=== PATIENT | male | born 1940 | race Caucasian/White ===

== ENCOUNTER 2021-01-27 10:47 | Outpatient (RCR) | payer OTHER, SELFPAY | END 2021-01-27 23:59 | disposition home or self-care (01) | LOC: ANHAUDIO 10:47 | PROVIDERS: PCP Family Medicine | DX: Z46.1 Encounter for fitting and adjustment of hearing aid (principal) | CPT/HCPCS: 92593 ==

== ENCOUNTER 2022-07-13 14:21 | Outpatient (RCR) | payer MEDICARE, SELFPAY | END 2022-07-13 23:59 | disposition home or self-care (01) | LOC: ANHAUDIO 14:21 | PROVIDERS: PCP Family Medicine; Visit Provider Family Medicine | DX: Z46.1 Encounter for fitting and adjustment of hearing aid (principal) | CPT/HCPCS: 92593 ==

== ENCOUNTER 2022-09-03 15:02 | Inpatient (IN) | payer MEDICARE, SELFPAY ==
--- NOTE | ~2022-09-03 | XR_ITS ---
XR abdomen/kub 1V 09/07/2022 08:45 Indication: Constipation. Procedure: KUB Comparison: 09/06/2022 Findings: There is large amount of retained fecal material in the proximal colon. There is mildly dil ated small bowel. There is residual contrast in the bladder. Pacemaker leads are overlying the heart. There are median sternotomy wires. Severe lumbar spondylosis. Impression: 1: Moderate colonic fecal loading with dilated small bowel which may represent obstruction or ileus. Reviewed, dictated and finalized at location L. Impression: 1: Moderate colonic fecal loading with dilated small bowel which may represent obstruction or ileus.
--- NOTE | ~2022-09-03 | XR_ITS ---
XR abdomen/kub 1V 09/06/2022 11:09 Indication: Bowel obstruction Procedure: KUB Comparison: No prior studies for comparison. Findings: Dilated small bowel present throughout the abdomen. The colon is relatively decompressed. T here is retained fecal material in the rectum. No abnormal calcifications. Impression: 1: Dilated small bowel, compatible with obstruction. Reviewed, dictated and finalized at location B. Impression: 1: Dilated small bowel, compatible with obstruction.
--- NOTE | ~2022-09-03 | XR_ITS ---
EXAMINATION: XR abdomen/kub 1V INDICATION: Constipation TECHNIQUE: Supine views of the abdomen were obtained on three radiographs. COMPARISON: 09/07/2022 FINDINGS: Again seen is a moderate volume of colonic stool. There are persistent mild dilatation of m ultiple small bowel loops. No free intraperitoneal gas is identified. IMPRESSION: 1. Constipation. Multiple mildly dilated loops of small bowel, likely ileus. Reviewed, dictated and finalized at location A.
--- NOTE | ~2022-09-03 | CT_ITS ---
EXAMINATION: CT abdomen pelvis w con DATE: 09/06/2022 19:11 INDICATION: VOMITING SINCE LAST NIGHT, NEOPLASM OF SB, WORSENING BOWEL TECHNIQUE: Computed tomography (CT) of the abdomen and pelvis was performed with 100 mL Omnipaque-350 intravenous contrast. Automated exposure control and iterative reconstruction technique were employe d. The dose-length product was 1422.02 mGy-cm. COMPARISON: None. FINDINGS: Lower thorax: Sternotomy wires. Partially visualized pacing wires. Asbestos-related pleural disease. Scarring/atelectasis and architectural distortion in the lung bases. Liver: Normal. Biliary/Gallbladder: Gallbladder is normal. No bile duct dilation. Pancreas: Mild atrophy Spleen: Normal. Adrenals:2.7 cm indeterminate density left adrenal mass Kidneys: Simple left renal cyst. No suspicious mass, stone, or hydronephrosis. GI tract: NG tube, tip and side port project in the stomach. Lobulated 6.7 x 11.6 x 11.3 cm central l ow density mass intimately associated with a loop of small bowel in the left mid abdomen/lower quadra nt. Ovoid, hyperenhancing 1.7 cm small bowel wall mass in the left upper quadrant . Mild dilation of multiple loops of small bowel in the left upper abdomen, with no transition point, wall thickening, o r pneumatosis. Normal appendix. Diverticulosis without diverticulitis. Mesentery/Peritoneum: No ascites, mass, or free air. Retroperitoneum: No mass. Pelvis: Marked distention of the urinary bladder. Mild prostatomegaly with calcifications. Soft Tissues: Soft tissues and body wall unremarkable. Bones: No acute osseous finding. IMPRESSION: Mild small bowel dilation, most likely represents ileus. Early or partial obstruction not excluded. N o CT evidence of bowel perforation. 11.6 cm necrotic left lower abdominal mass, likely arising from b owel wall. 1.7 cm hyperenhancing mass in the left upper quadrant also likely arising from bowel wall. Reviewed, dictated and finalized at location K. IMPRESSION: Mild small bowel dilation, most likely represents ileus. Early or partial obstr uction not excluded. No CT evidence of bowel perforation. 11.6 cm necrotic left lower abdominal mass, likely arising from bowel wall. 1.7 cm hyperenhancing ma ss in the left upper quadrant also likely arising from bowel wall.
[2022-09-03 15:15] VITALS: BP 118/64; PULSE 76; RESP 18; TEMP 36.2; O2SAT 97; BMI 39.8
--- NOTE | 2022-09-03 15:15 | ADMGEN ---
This patient, Tex Campo, was admitted to 2nd Floor Room 209-1 as a skilled swing bed related to weakness/rehab. Patient/family oriented to hospital policies and general routines including ID bracelet, bed and alarms, visiting hours, pain management, procedures, bathroom and other care routines, personal items, smoking policy, room service/diet, and visiting hours. Information on how to activate the Rapid Response Team has been discussed. Patient/Family are encouraged to report perceived risks to care and to ask questions if they do not understand what they are told or what they should do.
[2022-09-03] MEDS: OMEGA 3 POLYUNSAT FATTY ACIDS 1 GM CAP 2 GM PO (18:25)
[2022-09-03] MEDS: SALMET XINAFT/FLUTIC PROPIN 250 MCG/50 MCG INH CAP 1 PUFF INHALATION (18:25)
[2022-09-03] MEDS: FAMOTIDINE 20 MG TABLET PO (20:07)
[2022-09-03] MEDS: traZODone HCL 50 MG TABLET PO (20:07)
[2022-09-03 23:32] VITALS: BP 120/58; PULSE 75; RESP 16; TEMP 36.4; O2SAT 98
[2022-09-04 05:17] LABS: Hematocrit 29.6 % (37.0-46.0); Hemoglobin 9.3 g/dL (12.4-15.3); Mean Corpuscular HGB Conc 31.4 g/dL (32.0-36.0); Mean Corpuscular Hemoglobin 28.3 pg (27.0-31.0); Mean Platelet Volume 8.2 fl (8.7-11.0); Platelet Count Result 191 K/mm3 (150-420); Red Blood Count 3.29 M/mm3 (4.70-6.10); Red Cell Distribution Width 15.1 % (11.6-14.4); White Blood Count 9.7 K/mm3 (4.8-10.8)
[2022-09-04 05:37] LABS: Alanine Aminotransferase 14 U/L (16-63); Albumin Level 2.6 g/dL (3.4-5.0); Alkaline Phosphatase 90 U/L (46-116); Anion Gap 9 mmol/L (8-16); Aspartate Amino Transferase 11 U/L (15-37); Bilirubin,Total 0.3 mg/dL (0.00-1.00); Blood Urea Nitrogen 12 mg/dL (7-18); Calcium 8.4 mg/dL (8.5-10.1); Carbon Dioxide 27 mmol/L (21-32); Chloride 107 mmol/L (98-108); Estimated CRCL calculation 66 ml/min; Estimated Glomerular Filt Rate > 60; Glucose 107 mg/dL (70-99); Osmolality Calculated 295 mOsm/kg (285-295); Potassium 3.9 mmol/L (3.5-5.1); Sodium 143 mmol/L (136-145); Total Protein 6.1 g/dL (6.4-8.2)
--- NOTE | 2022-09-04 05:37 | PM.IMHP ---
H&P: HPI History of Present Illness Date/Time: 09/04/22 05:37 Chief Complaint: rehab/weakness Narrative: this is a 82-year-old male with a past medical history of CAD status post CABG, AFib, chronic kidney disease stage 2, COPD, SAM, BPH,. Patient presented to outside hospital with a hemoglobin of 5.4 and received 3 units of PRBCs image showed 11 cm small intestinal mass with intraluminal hemorrhage compression of the ureter. patient was diagnosed with malignancy neoplasm w/ extensive necrosis. surgical Oncology does not recommend any further biopsy or surgery given high risk surgical candidate. Patient admitted in swing bed for rehabilitation due to decreased balance decreased mobility in severe limited function endurant and/or mobility. we also where the patient may require blood transfusions and he will receive periodical hemoglobin and hematocrit. Denies Review of Systems Review of Systems: All systems reviewed & are unremarkable except as noted in HPI and below PMFSH Social History Social History Smoking status: Never smoker Alcohol intake: never Substance use: never Lack of Transportation: No Lack of Food: Never True Current Housing: I Have Housing Concerned About Future Housing: No Difficulty Paying Gas/Electric Bills: No Difficulty Paying for Meds: No Currently Unemployed: No Education: High School Diploma/GED Difficulty w/ Childcare or Family Care: No Spiritual care concerns: No Meds Home Medications and Allergies Home Medications Medication Instructions Recorded Confirmed Type aspirin 81 mg tablet,delayed 81 mg PO DAILY 09/03/22 09/03/22 History release (Adult Low Dose Aspirin) benzonatate 100 mg capsule 100 mg PO TID PRN Cough 09/03/22 09/03/22 History esomeprazole magnesium 20 mg 20 mg PO DAILY 09/03/22 09/03/22 History capsule,delayed release famotidine 20 mg tablet 20 mg PO HS 09/03/22 09/03/22 History ferrous sulfate 325 mg (65 mg 325 mg PO DAILY 09/03/22 09/03/22 History iron) tablet (FeroSul) finasteride 5 mg tablet 5 mg PO DAILY 09/03/22 09/03/22 History fluticasone 250 mcg-salmeterol 50 1 inh inhalation Q12H 09/03/22 09/03/22 History mcg/dose blistr powdr for inhalation fluticasone propionate 50 2 spray intranasal DAILY 09/03/22 09/03/22 History mcg/actuation nasal spray,suspension icosapent ethyl 1 gram capsule 2 g PO BID 09/03/22 09/03/22 History ipratropium bromide 0.02 % 2.5 ml inhalation Q6H PRN 09/03/22 09/03/22 History solution for inhalation Shortness Of Breath polyethylene glycol 3350 17 gram 17 g PO DAILY PRN Constipation 09/03/22 09/03/22 History oral powder packet simvastatin 40 mg tablet 40 mg PO DAILY 09/03/22 09/03/22 History tamsulosin 0.4 mg capsule 0.4 mg PO DAILY 09/03/22 09/03/22 History Allergies Allergy/AdvReac Type Severity Reaction Status Date / Time albuterol Allergy Palpitation Verified 09/03/22 15:35 s levofloxacin Allergy Rash Verified 09/03/22 15:36 roflumilast Allergy Unknown Verified 09/03/22 15:36 Vital Signs Vital Signs - 24 hr 09/03/22 15:15 09/03/22 15:15 09/03/22 23:32 Temperature 36.2 C L 36.4 C Pulse Rate 76 75 Respiratory Rate 18 16 Blood Pressure 118/64 120/58 L Pulse Oximetry 97 97 98 Oxygen Delivery Room Air Room Air Room Air Exam Narrative: GENERAL: This is a well-nourished, well-developed patient, in no apparent distress. HEAD: normocephalic, atraumatic. EYES: PERRL. Sclera clear/white. Vision is grossly intact. EARS: External ears normal, auditory canals clear and without drainage, TMs normal without perforation. Hearing grossly intact. NOSE: External nose normal with no obvious nasal discharge, nares without redness, no rhinorrhea. THROAT: Mucous membranes moist, posterior pharynx clear. NECK: Neck supple, non-tender without lymphadenopathy, masses or thyromegaly. CARDIOVASCULAR: Regular rate and rhythm without murmurs, gallops, or rubs. RESPIRATORY: C
--- NOTE | 2022-09-04 05:56 | PC.NURSE ---
Weight double verified. Patient slept well with no complaints. Ambulated x1 to bathroom with walker and 1 assist with gait belt.
[2022-09-04] MEDS: SALMET XINAFT/FLUTIC PROPIN 250 MCG/50 MCG INH CAP 1 PUFF INHALATION ×2 (06:04→17:38)
[2022-09-04 08:00] VITALS: BP 126/65; PULSE 75; RESP 16; TEMP 36.2; O2SAT 96
[2022-09-04] MEDS: FLUTICASONE PROPIONATE 0.05% NA SPR 16 GM BTL (*BKC) 2 SPRAY NASAL (08:47)
[2022-09-04] MEDS: OMEGA 3 POLYUNSAT FATTY ACIDS 1 GM CAP 2 GM PO ×2 (08:48→17:37)
[2022-09-04] MEDS: TAMSULOSIN HCL 0.4 MG CAPSULE PO (08:48)
[2022-09-04] MEDS: SIMVASTATIN 10 MG TABLET 40 MG PO (08:48)
[2022-09-04] MEDS: PANTOPRAZOLE SOD SESQUIHYDRATE 20 MG TAB PO (08:49)
[2022-09-04] MEDS: ASPIRIN 81 MG ENTERIC TABLET PO (08:49)
[2022-09-04] MEDS: FERROUS SULFATE 324 MG TABLET PO (08:49)
[2022-09-04] MEDS: FINASTERIDE 5 MG TABLET PO (08:49)
[2022-09-04 16:00] VITALS: BP 137/59; PULSE 79; RESP 16; TEMP 36.6; O2SAT 98
[2022-09-04] MEDS: traZODone HCL 50 MG TABLET PO (20:59)
[2022-09-04] MEDS: FAMOTIDINE 20 MG TABLET PO (20:59)
[2022-09-04 23:28] VITALS: BP 132/69; PULSE 75; RESP 16; TEMP 36.3; O2SAT 96
[2022-09-05] MEDS: SALMET XINAFT/FLUTIC PROPIN 250 MCG/50 MCG INH CAP 1 PUFF INHALATION ×2 (05:40→18:16)
--- NOTE | 2022-09-05 07:28 | PC.NURSE ---
SBA with mod assist to stand from bed, ambulated to bathroom using walker, tolerated well, to chair and assisted to change clothes, legs elevated in chair and call light in reach of patient, reminded to press red button for assistance
[2022-09-05 07:31] VITALS: BP 120/68; PULSE 75; RESP 20; TEMP 36.2; O2SAT 98
[2022-09-05] MEDS: FLUTICASONE PROPIONATE 0.05% NA SPR 16 GM BTL (*BKC) 2 SPRAY NASAL (08:19)
[2022-09-05] MEDS: FERROUS SULFATE 324 MG TABLET PO (08:21)
[2022-09-05] MEDS: OMEGA 3 POLYUNSAT FATTY ACIDS 1 GM CAP 2 GM PO ×2 (08:21→16:46)
[2022-09-05] MEDS: ASPIRIN 81 MG ENTERIC TABLET PO (08:21)
[2022-09-05] MEDS: FINASTERIDE 5 MG TABLET PO (08:21)
[2022-09-05] MEDS: PANTOPRAZOLE SOD SESQUIHYDRATE 20 MG TAB PO (08:22)
[2022-09-05] MEDS: SIMVASTATIN 10 MG TABLET 40 MG PO (08:23)
[2022-09-05] MEDS: TAMSULOSIN HCL 0.4 MG CAPSULE PO (08:23)
--- NOTE | 2022-09-05 08:39 | PHAR ---
VERIFIED PT.'S HOME MEDICATION CYCLOSPORINE 0.05% OPHTHALMIC EMULSION DROPS, SINGLE-USE VIALS (0.4ML EACH), 1 DROP IN BOTH EYES TWO TIMES DAILY.
[2022-09-05] MEDS: ARTIFICIAL TEARS OPHTH SOLN 15 ML BOTTLE 1 DROP EACH EYE ×3 (08:54→16:46)
[2022-09-05] MEDS: cycloSPORINE 0.4 ML OPHTH SOLUTION 1 DROP EACH EYE ×2 (08:54→20:09)
[2022-09-05 15:52] VITALS: BP 127/66; PULSE 75; RESP 18; TEMP 36.4; O2SAT 98
[2022-09-05] MEDS: HYDROcodone/acetaminophen (*CRX) 5-325 MG TABLET 1 TAB PO (18:20)
[2022-09-05 20:00] VITALS: PULSE 75; RESP 18; O2SAT 98
[2022-09-05] MEDS: traZODone HCL 50 MG TABLET PO (20:09)
[2022-09-05] MEDS: FAMOTIDINE 20 MG TABLET PO (20:09)
[2022-09-05] MEDS: traMADol HCL (*CRX) 25 MG TABLET PO (21:36)
--- NOTE | 2022-09-05 22:04 | PC.NURSE ---
Patient called and wanted to get up to the recliner. he states that he sleeps in the recliner at home. this nurse used 1 assist with walker and gaitbelt to transfer. patient is in the recliner at this time with the callight at his side.
--- NOTE | 2022-09-05 23:55 | PC.NURSE ---
patient is compaining of pain/burning in the RUQ of the abdomen, attempted mulitple pain medications without complete releif.
[2022-09-06] VITALS: BP 125/59; PULSE 75; RESP 16; TEMP 36.3; O2SAT 97
[2022-09-06] MEDS: HYDROcodone/acetaminophen (*CRX) 5-325 MG TABLET 1 TAB PO (00:20)
--- NOTE | 2022-09-06 06:43 | PC.NURSE ---
pt had an emesis of bile and undigested food. patient has been belching most of the night with a foul odor. states that his abdomen had been hurting again and it does feel better after the emesis. patient was gotten up to the recliner after his emesis. has tolerated sips of water since emesis. will continue to monitor for further emesis or abdominal pain.
[2022-09-06] MEDS: SALMET XINAFT/FLUTIC PROPIN 250 MCG/50 MCG INH CAP 1 PUFF INHALATION ×2 (06:53→20:11)
[2022-09-06 08:00] VITALS: BP 133/63; PULSE 75; RESP 14; TEMP 36.2; O2SAT 96
--- NOTE | 2022-09-06 09:09 | PC.NURSE ---
Pt having increased nausea and abdominal right sided pain with belching. Bowel sounds are greatly deminished. Abdoman is tight . RN notified charge nurse who notified [employer] INSTALLER Omar.
[2022-09-06] MEDS: ONDANSETRON HCL ODT 4 MG TABLET PO (10:44)
[2022-09-06] MEDS: ARTIFICIAL TEARS OPHTH SOLN 15 ML BOTTLE 1 DROP EACH EYE (10:44)
--- NOTE | 2022-09-06 11:32 | P.PNCROSS_ITS ---
Event Note Event Note Event Note: Patient has hypoactive bowel sounds with upper quadrant pain. Patient has not h ad a bowel movement in 4 days and he has some nausea with some vomiting. patient is in need of some IV fluids to be kept NPO will call Dr. Duron office and see what their recommendation is.
[2022-09-06 11:48] LABS: Hematocrit 34.8 % (37.0-46.0); Hemoglobin 10.9 g/dL (12.4-15.3); Mean Corpuscular HGB Conc 31.3 g/dL (32.0-36.0); Mean Corpuscular Hemoglobin 28.3 pg (27.0-31.0); Mean Corpuscular Volume 90.4 fL (78.0-102.0); Platelet Count Result 218 K/mm3 (150-420); Red Blood Count 3.85 M/mm3 (4.70-6.10); White Blood Count 14.2 K/mm3 (4.8-10.8)
--- NOTE | 2022-09-06 13:37 | PC.NURSE ---
This RN placed an 18 fr NG tube with help from KV RN. Pt very cooperative tube placed with very little resistance. 1400 ml of yellow brown fluid returned to [facility] canister in less that 5 minutes. Dark black solids noted. Sump is on intermitent suction. Pt states he feels less pressure on his belly now.
[2022-09-06] MEDS: SODIUM CHLORIDE 0.9% IV 1,000 ML 75 ML IV CONT (14:05)
--- NOTE | 2022-09-06 15:07 | PCOTNOTE ---
Nursing advised not to see patient this afternoon due to pt. current health status.- M
[2022-09-06 15:54] VITALS: BP 144/84; PULSE 84; RESP 18; TEMP 36.6; O2SAT 94
[2022-09-06] MEDS: MAGNESIUM HYDROXIDE SUSP 30 ML UDC PO (15:56)
--- NOTE | 2022-09-06 17:06 | P.PNCROSS_ITS ---
Event Note Event Note Event Note: Spoke with Dr Heredia about patient ? bowel obstruction with nausea and or vomi ting and ng tube placed. Dr Heredia was wanting CT/ABD with oral contrast. Radiology informed me I could bnot obtain oral contrast as we do not do this at this facility. I just order CT/ abd and pelvis with contrast at this time . Dr Heredia would like results called into the exchange so it can be recorded and they can decided what is needed.
--- NOTE | 2022-09-06 19:20 | PC.NURSE ---
patient down and back from xray at this time. rehooked to ng tube at low intermittent suction.
[2022-09-06] MEDS: traZODone HCL 50 MG TABLET PO (20:11)
[2022-09-06] MEDS: cycloSPORINE 0.4 ML OPHTH SOLUTION 1 DROP EACH EYE (20:11)
[2022-09-06] MEDS: FAMOTIDINE 20 MG TABLET PO (20:11)
--- NOTE | 2022-09-06 20:44 | PC.NURSE ---
This charge nurse spoke with Dr. Duron regarding CT report of abd. Dr. Duron stated that she was comfortable keeping patient here at this time. Dr. Duron request Hospitalist call her tomorrow with and update. Nurse spoke with Dr. Duron about bladder distention and doctor explained patient needed to be have straight cath a few times for retention.
--- NOTE | 2022-09-06 20:47 | PC.NURSE ---
Milly Nelson notified of Dr. Duron's instructions and [facility]
[2022-09-06 23:01] VITALS: BP 134/70; PULSE 74; RESP 15; TEMP 36.6; O2SAT 97
[2022-09-07] MEDS: SODIUM CHLORIDE 0.9% IV 1,000 ML 75 ML IV CONT ×2 (03:53→17:42)
--- NOTE | 2022-09-07 04:03 | PC.NURSE ---
Pt stated he needed to use the urinal. Pt was unable to void. This RN informed the pt that we can straight cath him prn to which the pt refused. Pt wishes to attempt to void again later.
[2022-09-07] MEDS: SALMET XINAFT/FLUTIC PROPIN 250 MCG/50 MCG INH CAP 1 PUFF INHALATION ×2 (06:23→17:43)
[2022-09-07 07:55] VITALS: BP 128/69; PULSE 75; RESP 14; TEMP 36.7; O2SAT 95
--- NOTE | 2022-09-07 09:07 | PC.NURSE ---
Pt given enema per order. Small results of soft formed black stool. Reported to SARAHI CORTEZ. RO
[2022-09-07] MEDS: FINASTERIDE 5 MG TABLET PO (09:43)
[2022-09-07] MEDS: TAMSULOSIN HCL 0.4 MG CAPSULE PO (09:43)
[2022-09-07] MEDS: ASPIRIN 81 MG ENTERIC TABLET PO (09:44)
[2022-09-07] MEDS: SIMVASTATIN 10 MG TABLET 40 MG PO (09:44)
[2022-09-07] MEDS: OMEGA 3 POLYUNSAT FATTY ACIDS 1 GM CAP 2 GM PO ×2 (09:44→17:43)
[2022-09-07] MEDS: PANTOPRAZOLE SOD SESQUIHYDRATE 20 MG TAB PO (09:44)
[2022-09-07] MEDS: cycloSPORINE 0.4 ML OPHTH SOLUTION 1 DROP EACH EYE ×2 (09:44→20:15)
[2022-09-07] MEDS: FLUTICASONE PROPIONATE 0.05% NA SPR 16 GM BTL (*BKC) 2 SPRAY NASAL (09:45)
--- NOTE | 2022-09-07 10:37 | P.PNCROSS_ITS ---
Event Note Event Note Event Note: patient has CT last night that did not show any obstruction patient did have a bout 2000 mL out states his stomach feels a lot better patient will be given an enema today where he had moderate amount of stool he still has NG tube in place we will continue to hold off from given him any foods we will give him his oral medications and we will continue to monitor him throughout the day we will plan on trying to feed him tomorrow KUB does not show an obstruction shows moderate a mount of stool patient is able to work with therapy no more nausea or vomiting at this time. I had a discussion with patient daughter about plan of what she would be wanting and she is considering hospice at this time we will continue with therapy and we will monitor patient stool. Patient has active bowel sound on the right left side is slightly hypoactive we will continue to monitor.
--- NOTE | 2022-09-07 14:42 | PC.NURSE ---
Pt NG remains clamped at this time no complaints at this time. Pt on a clear liquid diet at this time had clear liquid lunch. He has been up to the chair for 1 hour today. He has participated in therapy today.
[2022-09-07 16:00] VITALS: BP 134/64; PULSE 75; RESP 17; TEMP 36.4; O2SAT 96
--- NOTE | 2022-09-07 16:39 | PC.NURSE ---
Called to pt room where he stated his NG tube had fell out. Pt states he is not having any nausea or belly pain at this time. SARAHI Piña notified.
[2022-09-07] MEDS: traZODone HCL 50 MG TABLET PO (20:15)
[2022-09-07] MEDS: FAMOTIDINE 20 MG TABLET PO (20:15)
[2022-09-07 23:01] VITALS: BP 117/59; PULSE 74; RESP 20; TEMP 36.5; O2SAT 95
[2022-09-08 05:26] LABS: Hematocrit 30.1 % (37.0-46.0); Hemoglobin 9.1 g/dL (12.4-15.3); Mean Corpuscular HGB Conc 30.2 g/dL (32.0-36.0); Mean Corpuscular Hemoglobin 27.7 pg (27.0-31.0); Mean Corpuscular Volume 91.5 fL (78.0-102.0); Mean Platelet Volume 7.8 fl (8.7-11.0); Platelet Count Result 191 K/mm3 (150-420); Red Blood Count 3.29 M/mm3 (4.70-6.10); Red Cell Distribution Width 15.2 % (11.6-14.4); White Blood Count 11.1 K/mm3 (4.8-10.8)
[2022-09-08] MEDS: SALMET XINAFT/FLUTIC PROPIN 250 MCG/50 MCG INH CAP 1 PUFF INHALATION ×2 (05:31→17:24)
[2022-09-08] MEDS: SODIUM CHLORIDE 0.9% IV 1,000 ML 75 ML IV CONT (06:33)
[2022-09-08 06:46] LABS: Anion Gap 4 mmol/L (8-16); Blood Urea Nitrogen 11 mg/dL (9-20); Calcium 8.1 mg/dL (8.4-10.2); Carbon Dioxide 28 mmol/L (22-30); Chloride 105 mmol/L (98-107); Estimated CRCL calculation 65 ml/min; Estimated Glomerular Filt Rate > 60; Glucose 107 mg/dL (65-110); Osmolality Calculated 283 mOsm/kg (285-295); Sodium 137 mmol/L (137-145)
[2022-09-08 08:00] VITALS: BP 136/61; PULSE 74; RESP 18; TEMP 36.6; O2SAT 96
[2022-09-08] MEDS: ARTIFICIAL TEARS OPHTH SOLN 15 ML BOTTLE 1 DROP EACH EYE (09:14)
[2022-09-08] MEDS: cycloSPORINE 0.4 ML OPHTH SOLUTION 1 DROP EACH EYE ×2 (09:14→20:48)
[2022-09-08] MEDS: OMEGA 3 POLYUNSAT FATTY ACIDS 1 GM CAP 2 GM PO ×2 (09:14→17:23)
[2022-09-08] MEDS: SIMVASTATIN 10 MG TABLET 40 MG PO (09:15)
[2022-09-08] MEDS: FINASTERIDE 5 MG TABLET PO (09:16)
[2022-09-08] MEDS: PANTOPRAZOLE SOD SESQUIHYDRATE 20 MG TAB PO (09:16)
[2022-09-08] MEDS: FERROUS SULFATE 324 MG TABLET PO (09:16)
[2022-09-08] MEDS: TAMSULOSIN HCL 0.4 MG CAPSULE PO (09:16)
[2022-09-08] MEDS: FLUTICASONE PROPIONATE 0.05% NA SPR 16 GM BTL (*BKC) 2 SPRAY NASAL (09:16)
[2022-09-08] MEDS: ASPIRIN 81 MG ENTERIC TABLET PO (09:16)
--- NOTE | 2022-09-08 10:17 | PM.EVENT ---
Event Note Event Note Event Note: Spoke with Dr. Duron informed her of patient NG being clamped and attempting to feed him. I also discussed with her that he had a moderate size bowel movement and she agreed to continue on this path last nigh I received a phone call that patient NG tube was out . I informed them to keep it out and if patient had any further issues we would consider replacement but in the mean time we would feed him Today I placed a order to add Colace and miralax prn. Patient has a CC today and will see what the plan will be .
[2022-09-08] MEDS: DOCUSATE SODIUM 100 MG CAPSULE PO ×2 (12:07→20:46)
[2022-09-08 16:00] VITALS: BP 118/60; PULSE 81; RESP 17; TEMP 36.7; O2SAT 96
[2022-09-08] MEDS: FAMOTIDINE 20 MG TABLET PO (20:46)
[2022-09-08] MEDS: METOCLOPRAMIDE HCL INJ 10 MG/2 ML VIAL 5 MG IV PUSH (20:46)
[2022-09-08 21:00] VITALS: BP 134/70; PULSE 76; RESP 14; TEMP 36.4; O2SAT 96
[2022-09-09] MEDS: SALMET XINAFT/FLUTIC PROPIN 250 MCG/50 MCG INH CAP 1 PUFF INHALATION ×2 (06:41→18:08)
[2022-09-09 07:51] VITALS: BP 127/63; PULSE 75; RESP 16; TEMP 36.3; O2SAT 96
[2022-09-09] MEDS: METOCLOPRAMIDE HCL INJ 10 MG/2 ML VIAL 5 MG IV PUSH ×2 (08:17→20:31)
[2022-09-09] MEDS: FLUTICASONE PROPIONATE 0.05% NA SPR 16 GM BTL (*BKC) 2 SPRAY NASAL (08:20)
[2022-09-09] MEDS: FINASTERIDE 5 MG TABLET PO (08:21)
[2022-09-09] MEDS: SIMVASTATIN 10 MG TABLET 40 MG PO (08:21)
[2022-09-09] MEDS: PANTOPRAZOLE SOD SESQUIHYDRATE 20 MG TAB PO (08:22)
[2022-09-09] MEDS: FERROUS SULFATE 324 MG TABLET PO (08:22)
[2022-09-09] MEDS: OMEGA 3 POLYUNSAT FATTY ACIDS 1 GM CAP 2 GM PO ×2 (08:22→17:08)
[2022-09-09] MEDS: TAMSULOSIN HCL 0.4 MG CAPSULE PO (08:23)
[2022-09-09] MEDS: ARTIFICIAL TEARS OPHTH SOLN 15 ML BOTTLE 1 DROP EACH EYE (08:23)
[2022-09-09] MEDS: ASPIRIN 81 MG ENTERIC TABLET PO (08:23)
[2022-09-09] MEDS: DOCUSATE SODIUM 100 MG CAPSULE PO ×2 (08:23→20:32)
[2022-09-09] MEDS: cycloSPORINE 0.4 ML OPHTH SOLUTION 1 DROP EACH EYE ×2 (08:24→20:32)
[2022-09-09 15:51] VITALS: BP 134/61; PULSE 75; RESP 16; TEMP 36.4; O2SAT 97
[2022-09-09 20:00] VITALS: PULSE 75; RESP 16; O2SAT 97
[2022-09-09] MEDS: HYDROcodone/acetaminophen (*CRX) 5-325 MG TABLET 1 TAB PO (20:32)
[2022-09-09] MEDS: FAMOTIDINE 20 MG TABLET PO (20:32)
[2022-09-09] MEDS: traZODone HCL 50 MG TABLET PO (20:32)
[2022-09-10] VITALS: BP 139/70; PULSE 77; RESP 16; TEMP 36.6; O2SAT 97
[2022-09-10] MEDS: SALMET XINAFT/FLUTIC PROPIN 250 MCG/50 MCG INH CAP 1 PUFF INHALATION ×2 (05:54→17:40)
[2022-09-10 08:00] VITALS: BP 135/71; PULSE 75; RESP 16; TEMP 36.3; O2SAT 95
[2022-09-10] MEDS: METOCLOPRAMIDE HCL INJ 10 MG/2 ML VIAL 5 MG IV PUSH ×2 (08:18→20:16)
[2022-09-10] MEDS: SIMVASTATIN 10 MG TABLET 40 MG PO (08:21)
[2022-09-10] MEDS: OMEGA 3 POLYUNSAT FATTY ACIDS 1 GM CAP 2 GM PO ×2 (08:22→17:39)
[2022-09-10] MEDS: PANTOPRAZOLE SOD SESQUIHYDRATE 20 MG TAB PO (08:23)
[2022-09-10] MEDS: ASPIRIN 81 MG ENTERIC TABLET PO (08:23)
[2022-09-10] MEDS: TAMSULOSIN HCL 0.4 MG CAPSULE PO (08:23)
[2022-09-10] MEDS: FINASTERIDE 5 MG TABLET PO (08:23)
[2022-09-10] MEDS: DOCUSATE SODIUM 100 MG CAPSULE PO ×2 (08:24→20:18)
[2022-09-10] MEDS: FLUTICASONE PROPIONATE 0.05% NA SPR 16 GM BTL (*BKC) 2 SPRAY NASAL (08:24)
[2022-09-10] MEDS: FERROUS SULFATE 324 MG TABLET PO (08:24)
[2022-09-10] MEDS: BISACODYL 10 MG SUPPOSITORY RECTAL (13:14)
--- NOTE | 2022-09-10 14:07 | PC.NURSE ---
administered a suppository to patient and it was somewhat effective. Patient had a small, soft and formed bowel movement.
[2022-09-10 16:00] VITALS: BP 132/75; PULSE 75; RESP 16; TEMP 36.3; O2SAT 98
[2022-09-10 20:00] VITALS: PULSE 75; RESP 16; O2SAT 98
[2022-09-10] MEDS: cycloSPORINE 0.4 ML OPHTH SOLUTION 1 DROP EACH EYE (20:16)
[2022-09-10] MEDS: FAMOTIDINE 20 MG TABLET PO (20:18)
[2022-09-10] MEDS: HYDROcodone/acetaminophen (*CRX) 5-325 MG TABLET 1 TAB PO (20:18)
[2022-09-10] MEDS: traZODone HCL 50 MG TABLET PO (20:18)
[2022-09-11] VITALS: BP 130/62; PULSE 77; RESP 17; TEMP 36.4; O2SAT 97
[2022-09-11] MEDS: SALMET XINAFT/FLUTIC PROPIN 250 MCG/50 MCG INH CAP 1 PUFF INHALATION ×2 (05:51→17:46)
[2022-09-11 08:00] VITALS: BP 132/64; PULSE 85; RESP 14; TEMP 36.8; O2SAT 95
[2022-09-11] MEDS: METOCLOPRAMIDE HCL INJ 10 MG/2 ML VIAL 5 MG IV PUSH ×2 (09:29→20:40)
[2022-09-11] MEDS: FLUTICASONE PROPIONATE 0.05% NA SPR 16 GM BTL (*BKC) 2 SPRAY NASAL (09:30)
[2022-09-11] MEDS: OMEGA 3 POLYUNSAT FATTY ACIDS 1 GM CAP 2 GM PO ×2 (09:30→17:46)
[2022-09-11] MEDS: PANTOPRAZOLE SOD SESQUIHYDRATE 20 MG TAB PO (09:31)
[2022-09-11] MEDS: DOCUSATE SODIUM 100 MG CAPSULE PO ×2 (09:31→20:41)
[2022-09-11] MEDS: SIMVASTATIN 10 MG TABLET 40 MG PO (09:31)
[2022-09-11] MEDS: ASPIRIN 81 MG ENTERIC TABLET PO (09:31)
[2022-09-11] MEDS: TAMSULOSIN HCL 0.4 MG CAPSULE PO (09:31)
[2022-09-11] MEDS: FINASTERIDE 5 MG TABLET PO (09:31)
[2022-09-11] MEDS: ARTIFICIAL TEARS OPHTH SOLN 15 ML BOTTLE 1 DROP EACH EYE (09:32)
[2022-09-11] MEDS: cycloSPORINE 0.4 ML OPHTH SOLUTION 1 DROP EACH EYE ×2 (09:32→20:40)
[2022-09-11 16:45] VITALS: BP 133/56; PULSE 75; RESP 20; TEMP 36.6; O2SAT 98
[2022-09-11 20:00] VITALS: PULSE 75; RESP 20; O2SAT 98
[2022-09-11] MEDS: FAMOTIDINE 20 MG TABLET PO (20:41)
[2022-09-11] MEDS: traZODone HCL 50 MG TABLET PO (20:41)
[2022-09-11] MEDS: HYDROcodone/acetaminophen (*CRX) 5-325 MG TABLET 1 TAB PO (20:41)
[2022-09-12] VITALS: BP 131/63; PULSE 75; RESP 16; TEMP 36.4; O2SAT 97
[2022-09-12] MEDS: SALMET XINAFT/FLUTIC PROPIN 250 MCG/50 MCG INH CAP 1 PUFF INHALATION ×2 (05:40→17:58)
[2022-09-12 08:00] VITALS: BP 143/71; PULSE 75; RESP 18; TEMP 36; O2SAT 97
--- NOTE | 2022-09-12 08:44 | P.PNCROSS_ITS ---
Event Note Event Note Event Note: Had a conversation to patient daughter regarding what her plan was on where dannielle avendano would go and if they want hospice or not. I discussed some hospice care as they want him to go home. They may not go and see surgeon tomorrow since she is not going to do anything and they will plan to take him when insurance quits paying possibly sunday or sunday. they will talk to case management today.
[2022-09-12 09:17] LABS: Hematocrit 33.1 % (37.0-46.0); Hemoglobin 10.2 g/dL (12.4-15.3); Mean Corpuscular HGB Conc 30.8 g/dL (32.0-36.0); Mean Corpuscular Volume 90.9 fL (78.0-102.0); Mean Platelet Volume 7.9 fl (8.7-11.0); Platelet Count Result 222 K/mm3 (150-420); Red Blood Count 3.64 M/mm3 (4.70-6.10); Red Cell Distribution Width 14.9 % (11.6-14.4); White Blood Count 14.2 K/mm3 (4.8-10.8)
[2022-09-12 09:27] LABS: Anion Gap 11 mmol/L (8-16); Blood Urea Nitrogen 10 mg/dL (7-18); Calcium 8.5 mg/dL (8.5-10.1); Carbon Dioxide 27 mmol/L (21-32); Chloride 102 mmol/L (98-108); Estimated CRCL calculation 57 ml/min; Estimated Glomerular Filt Rate > 60; Glucose 154 mg/dL (70-99); Osmolality Calculated 292 mOsm/kg (285-295); Potassium 3.6 mmol/L (3.5-5.1); Sodium 140 mmol/L (136-145)
[2022-09-12] MEDS: ARTIFICIAL TEARS OPHTH SOLN 15 ML BOTTLE 1 DROP EACH EYE (10:05)
[2022-09-12] MEDS: FLUTICASONE PROPIONATE 0.05% NA SPR 16 GM BTL (*BKC) 2 SPRAY NASAL (10:05)
[2022-09-12] MEDS: METOCLOPRAMIDE HCL INJ 10 MG/2 ML VIAL 5 MG IV PUSH (10:06)
[2022-09-12] MEDS: SIMVASTATIN 10 MG TABLET 40 MG PO (10:06)
[2022-09-12] MEDS: cycloSPORINE 0.4 ML OPHTH SOLUTION 1 DROP EACH EYE ×2 (10:06→20:27)
[2022-09-12] MEDS: FERROUS SULFATE 324 MG TABLET PO (10:06)
[2022-09-12] MEDS: TAMSULOSIN HCL 0.4 MG CAPSULE PO (10:07)
[2022-09-12] MEDS: FINASTERIDE 5 MG TABLET PO (10:07)
[2022-09-12] MEDS: PANTOPRAZOLE SOD SESQUIHYDRATE 20 MG TAB PO (10:07)
[2022-09-12] MEDS: OMEGA 3 POLYUNSAT FATTY ACIDS 1 GM CAP 2 GM PO ×2 (10:07→17:58)
[2022-09-12] MEDS: DOCUSATE SODIUM 100 MG CAPSULE PO ×2 (10:08→20:27)
[2022-09-12] MEDS: ASPIRIN 81 MG ENTERIC TABLET PO (10:08)
[2022-09-12 16:00] VITALS: BP 134/70; PULSE 76; RESP 17; TEMP 36.1; O2SAT 97
[2022-09-12] MEDS: FAMOTIDINE 20 MG TABLET PO (20:27)
[2022-09-12] MEDS: traZODone HCL 50 MG TABLET PO (20:27)
[2022-09-12 23:02] VITALS: BP 116/54; PULSE 73; RESP 20; TEMP 36.4; O2SAT 95
[2022-09-13] MEDS: SALMET XINAFT/FLUTIC PROPIN 250 MCG/50 MCG INH CAP 1 PUFF INHALATION ×2 (06:41→17:54)
[2022-09-13 08:00] VITALS: BP 110/57; PULSE 80; RESP 18; TEMP 36.1; O2SAT 96
[2022-09-13] MEDS: cycloSPORINE 0.4 ML OPHTH SOLUTION 1 DROP EACH EYE ×2 (09:16→21:04)
[2022-09-13] MEDS: ARTIFICIAL TEARS OPHTH SOLN 15 ML BOTTLE 1 DROP EACH EYE (09:16)
[2022-09-13] MEDS: FLUTICASONE PROPIONATE 0.05% NA SPR 16 GM BTL (*BKC) 2 SPRAY NASAL (09:16)
[2022-09-13] MEDS: PANTOPRAZOLE SOD SESQUIHYDRATE 20 MG TAB PO (09:17)
[2022-09-13] MEDS: OMEGA 3 POLYUNSAT FATTY ACIDS 1 GM CAP 2 GM PO ×2 (09:17→17:54)
[2022-09-13] MEDS: DOCUSATE SODIUM 100 MG CAPSULE PO ×2 (09:17→21:04)
[2022-09-13] MEDS: TAMSULOSIN HCL 0.4 MG CAPSULE PO (09:17)
[2022-09-13] MEDS: ASPIRIN 81 MG ENTERIC TABLET PO (09:17)
[2022-09-13] MEDS: SIMVASTATIN 10 MG TABLET 40 MG PO (09:17)
[2022-09-13] MEDS: FINASTERIDE 5 MG TABLET PO (09:18)
[2022-09-13] MEDS: FERROUS SULFATE 324 MG TABLET PO (09:18)
[2022-09-13 16:00] VITALS: BP 120/61; PULSE 76; RESP 17; TEMP 36.3; O2SAT 97
[2022-09-13] MEDS: traZODone HCL 50 MG TABLET PO (21:04)
[2022-09-13] MEDS: FAMOTIDINE 20 MG TABLET PO (21:04)
[2022-09-14] VITALS: BP 118/67; PULSE 78; RESP 18; TEMP 36.3; O2SAT 97
[2022-09-14] MEDS: SALMET XINAFT/FLUTIC PROPIN 250 MCG/50 MCG INH CAP 1 PUFF INHALATION ×2 (06:11→17:34)
[2022-09-14 07:55] VITALS: BP 146/71; PULSE 74; RESP 16; TEMP 36.4; O2SAT 95
[2022-09-14] MEDS: OMEGA 3 POLYUNSAT FATTY ACIDS 1 GM CAP 2 GM PO ×2 (08:09→17:34)
[2022-09-14] MEDS: PANTOPRAZOLE SOD SESQUIHYDRATE 20 MG TAB PO (08:11)
[2022-09-14] MEDS: ASPIRIN 81 MG ENTERIC TABLET PO (08:11)
[2022-09-14] MEDS: DOCUSATE SODIUM 100 MG CAPSULE PO ×2 (08:11→20:47)
[2022-09-14] MEDS: SIMVASTATIN 10 MG TABLET 40 MG PO (08:12)
[2022-09-14] MEDS: TAMSULOSIN HCL 0.4 MG CAPSULE PO (08:12)
[2022-09-14] MEDS: FERROUS SULFATE 324 MG TABLET PO (08:14)
[2022-09-14] MEDS: cycloSPORINE 0.4 ML OPHTH SOLUTION 1 DROP EACH EYE ×2 (08:15→20:47)
[2022-09-14] MEDS: FLUTICASONE PROPIONATE 0.05% NA SPR 16 GM BTL (*BKC) 2 SPRAY NASAL (08:15)
[2022-09-14] MEDS: FINASTERIDE 5 MG TABLET PO (08:15)
--- NOTE | 2022-09-14 08:50 | PC.NURSE ---
Patient had a very small bowel movement with some liquid, and 2 small formed pieces. Patient still needs to move his bowels completely, and is having difficulty due to tumor in small bowel.
[2022-09-14 16:00] VITALS: BP 146/75; PULSE 75; RESP 16; TEMP 36.3; O2SAT 98
[2022-09-14 19:52] VITALS: PULSE 75; RESP 16; O2SAT 98
[2022-09-14] MEDS: traZODone HCL 50 MG TABLET PO (20:47)
[2022-09-14] MEDS: FAMOTIDINE 20 MG TABLET PO (20:47)
[2022-09-15] VITALS: BP 138/63; PULSE 75; RESP 16; TEMP 36.6; O2SAT 97
[2022-09-15 05:25] LABS: Hematocrit 29.4 % (37.0-46.0); Hemoglobin 9.1 g/dL (12.4-15.3)
[2022-09-15] MEDS: SALMET XINAFT/FLUTIC PROPIN 250 MCG/50 MCG INH CAP 1 PUFF INHALATION ×2 (05:30→17:41)
[2022-09-15 08:00] VITALS: BP 134/70; PULSE 75; RESP 16; TEMP 36.4; O2SAT 96
[2022-09-15] MEDS: DOCUSATE SODIUM 100 MG CAPSULE PO ×2 (08:37→20:30)
[2022-09-15] MEDS: ASPIRIN 81 MG ENTERIC TABLET PO (08:37)
[2022-09-15] MEDS: FLUTICASONE PROPIONATE 0.05% NA SPR 16 GM BTL (*BKC) 2 SPRAY NASAL (08:37)
[2022-09-15] MEDS: cycloSPORINE 0.4 ML OPHTH SOLUTION 1 DROP EACH EYE ×2 (08:37→20:30)
[2022-09-15] MEDS: OMEGA 3 POLYUNSAT FATTY ACIDS 1 GM CAP 2 GM PO ×2 (08:37→17:40)
[2022-09-15] MEDS: FINASTERIDE 5 MG TABLET PO (08:38)
[2022-09-15] MEDS: PANTOPRAZOLE SOD SESQUIHYDRATE 20 MG TAB PO (08:38)
[2022-09-15] MEDS: FERROUS SULFATE 324 MG TABLET PO (08:38)
[2022-09-15] MEDS: TAMSULOSIN HCL 0.4 MG CAPSULE PO (08:38)
[2022-09-15] MEDS: SIMVASTATIN 10 MG TABLET 40 MG PO (08:42)
[2022-09-15 16:00] VITALS: BP 118/54; PULSE 75; RESP 16; TEMP 36.4; O2SAT 94
[2022-09-15] MEDS: ACETAMINOPHEN 325 MG TABLET PO (20:30)
[2022-09-15] MEDS: traZODone HCL 50 MG TABLET PO (20:30)
[2022-09-15] MEDS: FAMOTIDINE 20 MG TABLET PO (20:30)
[2022-09-15 23:07] VITALS: BP 116/61; PULSE 74; RESP 20; TEMP 36.6; O2SAT 97
[2022-09-16] MEDS: SALMET XINAFT/FLUTIC PROPIN 250 MCG/50 MCG INH CAP 1 PUFF INHALATION ×2 (06:36→17:35)
[2022-09-16 08:00] VITALS: BP 146/65; PULSE 75; RESP 18; TEMP 36.3; O2SAT 97
[2022-09-16] MEDS: ARTIFICIAL TEARS OPHTH SOLN 15 ML BOTTLE 1 DROP EACH EYE (08:51)
[2022-09-16] MEDS: FLUTICASONE PROPIONATE 0.05% NA SPR 16 GM BTL (*BKC) 2 SPRAY NASAL (08:51)
[2022-09-16] MEDS: cycloSPORINE 0.4 ML OPHTH SOLUTION 1 DROP EACH EYE ×2 (08:51→20:07)
[2022-09-16] MEDS: FINASTERIDE 5 MG TABLET PO (08:52)
[2022-09-16] MEDS: PANTOPRAZOLE SOD SESQUIHYDRATE 20 MG TAB PO (08:52)
[2022-09-16] MEDS: ASPIRIN 81 MG ENTERIC TABLET PO (08:52)
[2022-09-16] MEDS: FERROUS SULFATE 324 MG TABLET PO (08:52)
[2022-09-16] MEDS: OMEGA 3 POLYUNSAT FATTY ACIDS 1 GM CAP 2 GM PO ×2 (08:52→17:32)
[2022-09-16] MEDS: TAMSULOSIN HCL 0.4 MG CAPSULE PO (08:52)
[2022-09-16] MEDS: DOCUSATE SODIUM 100 MG CAPSULE PO ×2 (08:52→20:07)
[2022-09-16] MEDS: SIMVASTATIN 10 MG TABLET 40 MG PO (08:53)
[2022-09-16] MEDS: ONDANSETRON HCL ODT 4 MG TABLET PO (15:12)
[2022-09-16 16:00] VITALS: BP 120/68; PULSE 76; RESP 17; TEMP 36.5; O2SAT 98
[2022-09-16] MEDS: traZODone HCL 50 MG TABLET PO (20:06)
[2022-09-16] MEDS: FAMOTIDINE 20 MG TABLET PO (20:06)
[2022-09-16 23:02] VITALS: BP 133/57; PULSE 74; RESP 19; TEMP 36.5; O2SAT 96
--- NOTE | 2022-09-17 04:33 | PM.DS ---
DS: Admitting Diagnosis Discharge Date 09/17/2022 Admitting Diagnosis rehab/ weakness DS: Discharge Diagnosis Discharge Diagnosis (1) Weakness: Code(s): R53.1 - Weakness Status: Acute Assessment and Plan: patient will transition to hospice (2) CAD (coronary artery disease): Code(s): I25.10 - Atherosclerotic heart disease of [place] coronary artery without angina pectoris Status: Acute Assessment and Plan: continue home medication (3) S/P CABG (coronary artery bypass graft): Code(s): Z95.1 - Presence of aortocoronary bypass graft Status: Acute (4) HTN (hypertension): Code(s): I10 - Essential (primary) hypertension Status: Acute Assessment and Plan: stable continue home medication (5) HLD (hyperlipidemia): Code(s): E78.5 - Hyperlipidemia, unspecified Status: Acute Assessment and Plan: stable continue medication (6) CHF (congestive heart failure): Code(s): I50.9 - Heart failure, unspecified Status: Acute Assessment and Plan: stable continue home medication (7) COPD (chronic obstructive pulmonary disease) case management patient: Code(s): J44.9 - Chronic obstructive pulmonary disease, unspecified Status: Acute (8) GERD (gastroesophageal reflux disease): Code(s): K21.9 - Gastro-esophageal reflux disease without esophagitis Status: Acute (9) Small bowel mass: Code(s): K63.89 - Other specified diseases of intestine Status: Acute Assessment and Plan: patient was transitioned to hospice (10) CKD (chronic kidney disease): Code(s): N18.9 - Chronic kidney disease, unspecified Status: Acute (11) BPH (benign prostatic hyperplasia): Code(s): N40.0 - Benign prostatic hyperplasia without lower urinary tract symptoms Status: Acute (12) Anemia: Code(s): D64.9 - Anemia, unspecified Status: Acute (13) Depression: Code(s): F32.A - Depression, unspecified Status: Acute (14) Adrenal mass: Code(s): E27.8 - Other specified disorders of adrenal gland Status: Acute DS: Summary Hospital Course Hospital Course: this is a 82-year-old male with a past medical history of CAD status post CABG, AFib, chronic kidney disease stage 2, COPD, SAM, BPH,.? Patient presented to outside hospital with a hemoglobin of 5.4 and received 3 units of PRBCs image showed 11 cm small intestinal mass with intraluminal hemorrhage compression of the ureter. patient was diagnosed with malignancy neoplasm w/ extensive necrosis. surgical Oncology does not recommend any further biopsy or surgery given high? risk surgical candidate. ? Patient admitted in swing bed for rehabilitation due to decreased balance decreased mobility in severe limited function endurant and/or mobility. Due to patient's condition he will transition to hospice Time Spent with Patient Time attestation: Total time spent providing and/or coordinating discharge services: Exam Narrative: GENERAL: This is a well-nourished, well-developed patient, in no apparent distress. HEAD: normocephalic, atraumatic. EYES: PERRL. Sclera clear/white. Vision is grossly intact. EARS: External ears normal, auditory canals clear and without drainage, TMs normal without perforation. Hearing grossly intact. NOSE: External nose normal with no obvious nasal discharge, nares without redness, no rhinorrhea. THROAT: Mucous membranes moist, posterior pharynx clear. NECK: Neck supple, non-tender without lymphadenopathy, masses or thyromegaly. CARDIOVASCULAR: Regular rate and rhythm without murmurs, gallops, or rubs. RESPIRATORY: Clear to auscultation. Breath sounds equal bilaterally. No wheezes, rales, or rhonchi. GASTROINTESTINAL: Abdomen soft, non-tender, nondistended. Bowel sounds are active. No hepato-splenomegaly, or palpable masses. No guarding. SKIN: warm, intact with no suspicious lesions or rash, good
[2022-09-17] MEDS: SALMET XINAFT/FLUTIC PROPIN 250 MCG/50 MCG INH CAP 1 PUFF INHALATION (06:19)
[2022-09-17 08:00] VITALS: BP 124/74; PULSE 78; RESP 18; TEMP 36.3; O2SAT 94
[2022-09-17] MEDS: cycloSPORINE 0.4 ML OPHTH SOLUTION 1 DROP EACH EYE (08:45)
[2022-09-17] MEDS: FLUTICASONE PROPIONATE 0.05% NA SPR 16 GM BTL (*BKC) 2 SPRAY NASAL (08:45)
[2022-09-17] MEDS: ARTIFICIAL TEARS OPHTH SOLN 15 ML BOTTLE 1 DROP EACH EYE (08:45)
[2022-09-17] MEDS: SIMVASTATIN 10 MG TABLET 40 MG PO (08:46)
[2022-09-17] MEDS: FERROUS SULFATE 324 MG TABLET PO (08:46)
[2022-09-17] MEDS: PANTOPRAZOLE SOD SESQUIHYDRATE 20 MG TAB PO (08:46)
[2022-09-17] MEDS: TAMSULOSIN HCL 0.4 MG CAPSULE PO (08:46)
[2022-09-17] MEDS: FINASTERIDE 5 MG TABLET PO (08:46)
[2022-09-17] MEDS: OMEGA 3 POLYUNSAT FATTY ACIDS 1 GM CAP 2 GM PO (08:46)
[2022-09-17] MEDS: ASPIRIN 81 MG ENTERIC TABLET PO (08:47)
[2022-09-17] MEDS: DOCUSATE SODIUM 100 MG CAPSULE PO (08:47)
--- NOTE | 2022-09-17 09:50 | PC.NURSE ---
Reviewed discharge instructions with pt's daughter, Gloria. All questions answered. Pt transported via wheelchair and assisted into private vehicle with gait belt in use.
--- NOTE | 2022-09-18 10:25 | PC.NURSE ---
Daughter states they received and understood the discharge instructions. She also states they really appreciated the nurses that took care of him .
== END 2022-09-17 09:55 | disposition hospice, home (50) | DRG 948 ==
PROVIDERS: Nurse Practitioner; Nurse Practitioner Family; Admitting Provider Internal Medicine; PCP Family Medicine; Visit Provider Internal Medicine
DX: R53.1 Weakness (principal); C17.9 Malignant neoplasm of small intestine, unspecified; K56.609 Unspecified intestinal obstruction, unspecified as to partial versus complete obstruction; I48.20 Chronic atrial fibrillation, unspecified; I25.10 Atherosclerotic heart disease of native coronary artery without angina pectoris; I12.9 Hypertensive chronic kidney disease with stage 1 through stage 4 chronic kidney disease, or unspecified chronic kidney disease; N18.2 Chronic kidney disease, stage 2 (mild); J44.9 Chronic obstructive pulmonary disease, unspecified; D64.9 Anemia, unspecified; E78.5 Hyperlipidemia, unspecified; E27.8 Other specified disorders of adrenal gland; K21.9 Gastro-esophageal reflux disease without esophagitis; G47.33 Obstructive sleep apnea (adult) (pediatric); N40.0 Benign prostatic hyperplasia without lower urinary tract symptoms; F32.A Depression, unspecified; Z51.5 Encounter for palliative care; Z95.1 Presence of aortocoronary bypass graft; Z79.82 Long term (current) use of aspirin
CPT/HCPCS: 36415; 74018; 74177; 80048; 80053; 85014; 85018; 85027; 97110; 97116; 97161; 97165; 97530; 97535; A9270; J2765; J7030; Q9967